=== PATIENT | female | born 1965 ===

== ENCOUNTER 2020-07-25 09:56 | Day surgery (SDC) | payer OTHER | END 2020-07-25 17:20 | disposition home or self-care (01) | LOC: AMB-ENDOS 09:56 | PROVIDERS: ATTEND Colon & Rectal Surgery | DX: K57.32 Diverticulitis of large intestine without perforation or abscess without bleeding (principal); K64.1 Second degree hemorrhoids; Z20.822 Contact with and (suspected) exposure to COVID-19 ==